=== PATIENT | male | born 1985 | race Caucasian/White ===

== ENCOUNTER 2022-05-12 08:00 | Outpatient (CLI) | payer OTHER ==
--- NOTE | 2022-05-12 17:21 | XRAY Report ---
PROCEDURE: Shoulder 3 View RT INDICATIONS: SHOULDER PX TECHNIQUE: 4 views of the shoulder were acquired. COMPARISON: MRI right shoulder dated 03/13/2021 FINDINGS: Bones: No acute fractures or dislocations. No suspicious bony lesions. Visualized ribs appear inta ct. Redemonstration of degenerative changes of the right acromioclavicular and glenohumeral joints. Coracoclavicular and acromioclavicular intervals are maintained. Soft tissues: No suspicious soft tissue calcifications. Visualized portions of the lungs are clear. IMPRESSION: Right shoulder without acute fracture or dislocation. Degenerative changes of the right acromioclavicular and glenohumeral joints. Reviewed by: Ga Steinberg MD on 05/12/2022 5:20 PM PDT Approved by: Ga Steinberg MD on 05/12/2022 5:20 PM PDT Station ID: [id number]
== END 2022-05-12 23:59 | disposition home or self-care (01) ==
LOC: DI.WOS 08:00
PROVIDERS: ATTEND Physician Assistant
DX: M19.011 Primary osteoarthritis, right shoulder (principal)